=== PATIENT | male | born 1960 | race Hispanic/Latino ===

== ENCOUNTER 2020-06-25 16:25 | Observation (INO) | payer SELFPAY ==
[2020-06-25] MEDS ORDERED: HYDROCODONE/APAP 7.5/325 MG TAB ONE (17:50)
[2020-06-25] MEDS ORDERED: TETANUS & DIPHTHERIA TOX,ADULT 0.5 ML VIAL ONE (17:50)
--- NOTE | 2020-06-25 18:04 | RAD REPORT ---
EXAM DESCRIPTION: RAD - Hand Left 3 View - 06/25/2020 5:55 pm CLINICAL HISTORY: crush injury to left index finger FINDINGS: Soft tissue amputation with tuft fracture involves distal second digit. Hardware plate is present in the first metacarpal. No radiopaque foreign body evident.
[2020-06-25] MEDS ORDERED: LIDOCAINE 1% 20 ML MDV ONE (18:28)
[2020-06-25] MEDS ORDERED: BUPIVACAINE 0.5% PF 10 ML VIAL ONE (18:28)
--- NOTE | 2020-06-25 18:43 | ER ---
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 Coronavirus screen: Client denies travel out of the [place] in the last 14 days. At this time, the client does not indicate any symptoms associated with coronavirus-19. Ebola Screen: Patient negative for fever greater than or equal to 101.5 degrees Fahrenheit, and additional compatible Ebola Virus Disease symptoms Patient denies exposure to infectious person. Patient denies travel to an Ebola-affected area in the 21 days before illness onset. No symptoms or risks identified at this time. Initial Sepsis Screen: Does the patient meet any 2 criteria? No. Patient's initial sepsis screen is negative. Does the patient have a suspected source of infection? No. Patient's initial sepsis screen is negative. Risk Assessment: Do you want to hurt yourself or someone else? Patient reports no desire to harm self or others. Onset of symptoms was June 25, 2020. 16:46 Method Of Arrival: Ambulatory ca1 16:46 Acuity: NICOLE 4 ca1 Triage Assessment: 16:51 General: Appears in no apparent distress. uncomfortable, Behavior is calm, cooperative, bp appropriate for age. Pain: Complains of pain in palmar aspect of distal phalanx of left index finger. EENT: No deficits noted. Neuro: No deficits noted. Cardiovascular: No deficits noted. Respiratory: No deficits noted. GI: No signs and/or symptoms were reported involving the gastrointestinal system. : No signs and/or symptoms were reported regarding the genitourinary system. Derm: No deficits noted. Musculoskeletal: Circulation, motion, and sensation intact. Injury Description: Avulsion sustained to palmar aspect of distal phalanx of left index finger. Historical: - Allergies: 16:49 No Known Allergies; ca1 - PMHx: 16:49 Hypertension; ca1 - Immunization history:: Last tetanus immunization: unknown. - Social history:: Smoking status: Patient reports the use of cigarette tobacco products, smokes one-half pack cigarettes per day. Screenin:53 Abuse screen: Denies threats or abuse. Denies injuries from another. Nutritional bp screening: No deficits noted. Tuberculosis screening: No symptoms or risk factors identified. Fall Risk None identified. Assessment: 16:53 General: SEE TRIAGE NOTE. bp Vital Signs: 16:46 BP 184 / 87; Pulse 69; Resp 16 S; Temp 98.4; Pulse Ox 98% on R/A; Weight 77.11 kg (M); ca1 Height 5 ft. 5 in. (165.10 cm) (R); Pain 7/10; 20:20 BP 144 / 76; Pulse 59; Resp 18; Temp 98.3; Pulse Ox 97% on R/A; mg2 16:46 Body Mass Index 28.29 (77.11 kg, 165.10 cm) ca1 ED Course: 16:26 Patient arrived in ED. am2 16:48 Triage completed. ca1 16:49 Arm band placed on right wrist. ca1 16:51 Norbert Blake, ISMA is Primary Nurse. bp 16:53 Patient has correct armband on for positive identification. Bed in low position. Call bp light in reach. Side rails up X2. 17:19 Jaya Garvin PA is PHCP. cp 17:19 Jaya Dunn MD is Attending Physician. cp 17:55 Hand Left 3 View In Process Unspecified. EDMS 18:39 XRAY Chest (1 view) In Process Unspecified. EDMS 18:41 Sebastian Klein MD is Hospitalizing Provider. cp 20:20 No provider procedures requiring assistance completed. Patient admitted, IV remains in mg2 place. 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 Exp: bp 09/11/2021. Lot #: [id number]. } Route: IM; Site: left deltoid; 18:13 Follow up: Response: No adverse reaction bp 18:12 Drug: Marcaine (bupivacaine) (0.5 %) 5 ml Volume: 10 ml; Route: Infiltration; bp 18:13 Drug: Lidocaine (1 %) 10 mg Volume: 20 ml; Route: Infiltration; bp 20:13 Drug: Ancef (cefazolin) 1 grams Route: IVPB; Site: right antecubital; ea Outcome: 18:43 Decision to Hospitalize by Provider. cp 20:20 Admitted to Med/surg accompanied by tech, via wheelchair, room 209, with chart, Report mg2 called to ISMA Root 20:20 Condition: stable 20:20 Instructed on the need for admit, Demonstrated understanding of instructions. 20:24 Patient left the ED. mg2 Signatures: Dispatcher [employer] EDMS Jaya Garvin PA PA cp Moreno, Amanda am2 Lianna Vera RN RN Norbert Monroy RN RN bp Dmitri Priest, ISMA RN mg2 Roselia Serrano RN RN ca1
--- NOTE | 2020-06-25 18:43 | EDPHYS ---
Physician Documentation [facility] Name: Bruce Doty Age: 60 yrs Sex: Male : 1960 Arrival Date: 06/25/2020 Time: 16:26 Bed 4 Private MD: Jaya Mora HPI: 06/25 17:30 This 60 yrs old Male presents to ER via Ambulatory with complaints of Finger cp Injury. 17:30 The patient or guardian reports deformity, injury, pain. The complaints affect the cp distal phalanx left index finger. 17:30 Context: resulted from a crush injury, "trailer". Onset: The symptoms/episode cp began/occurred just prior to arrival. Historical: - Allergies: 16:49 No Known Allergies; ca1 - PMHx: 16:49 Hypertension; ca1 - Immunization history:: Last tetanus immunization: unknown. - Social history:: Smoking status: Patient reports the use of cigarette tobacco products, smokes one-half pack cigarettes per day. ROS: 17:35 MS/extremity: Positive for injury or acute deformity, pain, of the distal phalanx left cp index finger. 17:35 Constitutional: Negative for body aches, chills, fever, poor PO intake. cp 17:35 Cardiovascular: Negative for chest pain, edema, palpitations. 17:35 Respiratory: Negative for cough, shortness of breath, wheezing. 17:35 All other systems are negative. Exam: 17:40 Constitutional: The patient appears in no acute distress, alert, awake, non-toxic, well cp developed, well nourished. 17:40 Head/Face: Normocephalic, atraumatic. cp 17:40 Eyes: Periorbital structures: appear normal, Conjunctiva: normal, no exudate, no injection, Lids and lashes: appear normal, bilaterally. 17:40 ENT: External ear(s): are unremarkable, Nose: is normal, Posterior pharynx: Airway: no evidence of obstruction, patent. 17:40 Chest/axilla: Inspection: normal, Palpation: is normal, no crepitus, no tenderness. 17:40 Cardiovascular: Rate: normal, Rhythm: regular. 17:40 Respiratory: the patient does not display signs of respiratory distress, Respirations: normal, no use of accessory muscles, no retractions, labored breathing, is not present, Breath sounds: are clear throughout, no decreased breath sounds, no stridor, no wheezing. 17:40 Abdomen/GI: Inspection: abdomen appears normal, Palpation: abdomen is soft and non-tender, in all quadrants. 17:40 Back: pain, is absent, ROM is normal. 17:40 Musculoskeletal/extremity: Extremities: grossly normal except: noted in the distal phalanx left index finger: deformity, pain, amputation with exposure of bone, mild bleeding, Perfusion: the extremity is intact, Sensation intact. 18:20 ECG was reviewed by the Attending Physician. cp Vital Signs: 16:46 BP 184 / 87; Pulse 69; Resp 16 S; Temp 98.4; Pulse Ox 98% on R/A; Weight 77.11 kg (M); ca1 Height 5 ft. 5 in. (165.10 cm) (R); Pain 7/10; 20:20 BP 144 / 76; Pulse 59; Resp 18; Temp 98.3; Pulse Ox 97% on R/A; mg2 16:46 Body Mass Index 28.29 (77.11 kg, 165.10 cm) ca1 MDM: 17:21 Patient medically screened. cp 17:30 Differential diagnosis: dislocation, open fracture, closed fracture, contusion, cp amputation. 18:15 Data reviewed: vital signs, nurses notes, radiologic studies, plain films. cp 18:15 Physician consultation: Rommel Mistry MD was called at 18:15, was contacted at 18:15, cp regarding consult, patient's condition, wants patient admitted to hospitalist, npo after midnight and will repair digit tomorrow morning. 18:30 Physician consultation: Cyrus PENA was called at 18:20, was contacted at 18:20, cp regarding admission, to the medical/surgical unit. patient's condition. 06/25 18:05 Order name: Basic Metabolic Panel; Complete Time: 19:17 cp 06/25 19: Interpretation: Normal except: GLUC 166. cp 06/25 18:05 Order name: CBC with Diff; Complete Time: 19: cp 06/25 19:17 Interpretation: Normal except: WBC 11.70; MALKA% 79.1; LYM% 12.3; NEUT A 9.2. cp 06/25 18:05 Order name: LFT's; Complete Time: 19:17 cp 06/25 19:19 Interpretation: Normal except: TP 8.3; GLOB 4.2; A/G 1.0. cp 06/25 18:05 Order name: Magnesium; Complete Time: 19:17 cp 06/25 18:05 Order name: PT-INR; Complete Time: 19:17 cp 06/25 17:29 Order name: Hand Left 3 View; Complete Time: 19:17 EDMS 06/25 18:05 Order name: XRAY Chest (1 view); Complete Time: 19:17 cp 06/25 19:33 Order name: SARS-COV-2 RT PCR; Complete Time: 19:46 EDMS 06/25 19:46 Interpretation: Results reviewed. cp 06/25 18:05 Order name: EKG; Complete Time: 18:17 cp 06/25 18:05 Order name: Cardiac monitoring; Complete Time: 18:13 cp 06/25 18:05 Order name: EKG - Nurse/Tech; Complete Time: 18:13 cp 06/25 18:05 Order name: IV Saline Lock; Complete Time: 19:09 cp 06/25 18:05 Order name: Labs collected and sent; Complete Time: 19:09 cp 06/25 18:05 Order name: O2 Per Protocol; Complete Time: 18:13 cp 06/25 18:05 Order name: O2 Sat Monitoring; Complete Time: 18:13 cp EC:20 Rate is 69 beats/min. Rhythm is regular. AR interval is normal. QRS interval is normal. cp QT interval is normal. Interpreted by me. Reviewed by me. 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 Exp: bp 09/11/2021. Lot #: [id number]. } Route: IM; Site: left deltoid; 18:13 Follow up: Response: No adverse reaction bp 18:12 Drug: Marcaine (bupivacaine) (0.5 %) 5 ml Volume: 10 ml; Route: Infiltration; bp 18:13 Drug: Lidocaine (1 %) 10 mg Volume: 20 ml; Route: Infiltration; bp 20:13 Drug: Ancef (cefazolin) 1 grams Route: IVPB; Site: right antecubital; ea Disposition: 19:00 Chart complete. cp 06/26 01:20 Co-signature as Attending Physician, Jaya Dunn MD I agree with the assessment and anju plan of care. Disposition: 06/25/20 18:43 Hospitalization ordered by Sebastian Klein for Observation. Preliminary diagnosis is Complete traumatic transphalangeal amputation of left index finger - distal phalanx. - Bed requested for Telemetry/MedSurg (observation). - Status is Observation. mg2 - Condition is Stable. - Problem is new. - Symptoms have improved. Signatures: Dispatcher [employer] EDVA Jaya Dunn MD MD cha Page, Corey, PA PA cp Lianna Vera, RN RN Norbert Monroy RN Dmitri Medina, RN RN mg2 Roselia Serrano RN RN ca1 Courtney Kemp RN RN rd1 Corrections: (The following items were deleted from the chart) 06/25 17:29 17:23 Finger-Thumb Left+.RAD.RAD.BRZ ordered. EDVA EDMS 18:48 18:19 CORONAVIRUS+MR.LAB.BRZ ordered. EDVA EDMS 19:21 18:43 Hospitalization Ordered by Sebastian Klein MD for Observation. Preliminary cp diagnosis is Nondisplaced fracture of distal phalanx of left index finger - open. Bed requested for Telemetry/MedSurg (observation). Status is Observation. Condition is Stable. Problem is new. Symptoms have improved. cp 19:56 19:21 06/25/2020 18:43 Hospitalization Ordered by Sebastian Klein MD for Observation. rd1 Preliminary diagnosis is Complete traumatic transphalangeal amputation of left index finger - distal phalanx. Bed requested for Telemetry/MedSurg (observation). Status is Observation. Condition is Stable. Problem is new. Symptoms have improved. cp 20:24 19:56 06/25/2020 18:43 Hospitalization Ordered by Sebastian Klein MD for Observation. mg2 Preliminary diagnosis is Complete traumatic transphalangeal amputation of left index finger - distal phalanx. Bed requested for Telemetry/MedSurg (observation). Status is Observation. Condition is Stable. Problem is new. Symptoms have improved. rd1
--- NOTE | 2020-06-25 18:51 | RAD REPORT ---
EXAM DESCRIPTION: RAD - Chest Single View - 06/25/2020 6:39 pm CLINICAL HISTORY: pre-op Chest pain. COMPARISON: <Comparisons> FINDINGS: Portable technique limits examination quality. Small calcified granuloma suspected left upper lobe. The lungs are otherwise clear. The heart is norm al in size. No displaced fractures. IMPRESSION: No acute intrathoracic process suspected.
[2020-06-25 18:53] LABS: Absolute Lymphocytes (CBC) 1.4 K/uL (0.7-4.9); Basophils % 0.4 % (0-1.3); Hematocrit 42.6 % (39.6-49.0); Lymphocytes % 12.3 % (15.3-44.8); MPV 9.4 fL (7.6-11.3); RBC Red Blood Cell Count 4.92 M/uL (4.33-5.43)
[2020-06-25 18:56] LABS: Protime INR 1.07
[2020-06-25 19:08] LABS: ALT/SGPT 37 U/L (12-78); AST/SGOT 20 U/L (15-37); Albumin 4.1 g/dL (3.4-5.0); Alkaline Phosphatase 87 U/L (45-117); BUN Blood Urea Nitrogen 17 mg/dL (7-18); Bicarbonate 26 mmol/L (21-32); Bilirubin Direct 0.1 mg/dL (0-0.2); Bilirubin Total 0.5 mg/dL (0.2-1.0); Glucose Level 166 mg/dL (74-106); Magnesium 2.1 mg/dL (1.8-2.4); Potassium 3.8 mmol/L (3.5-5.1); Protein, Total 8.3 g/dL (6.4-8.2); Sodium Level 138 mmol/L (136-145)
[2020-06-25] MEDS ORDERED: CEFAZOLIN/SWI 1gm 1 GM/10 ML SYR ONE (19:37)
--- NOTE | 2020-06-25 20:20 | P.HP ---
Certification for Inpatient Patient admitted to: Observation With expected LOS: <2 Midnights Patient will require the following post-hospital care: None Practitioner: I am a practitioner with admitting privileges, knowledge of patient current condition, hospital course, and medical plan of care. Services: Services provided to patient in accordance with Admission requirements found in Title 42 Section 412.3 of the Code of Federal Regulations <Cyrus Arreguin - Last Filed: 06/25/20 20:17> Patient History Date of Service: 06/25/20 Primary Care Provider: none Reason for admission: Left 2nd digit soft tissue amputation/tuft fracture History of Present Illness: 60-year-old male with no significant past medical history presents emergency department for finger injury. Patient reports he is at work working on attaching a trailer to the back of a truck when the trailer hitch crushed left 2nd digit. Soft tissue amputation of the distal left 2nd digit with tuft fracture noted. ED provider consulted with plastic surgery who wishes to have patient admitted under observation for further evaluation and management. Labs in the emergency department only significant for mildly elevated blood sugar 166. Patient denies taking any medications at home but reports he has been told he has high blood pressure in the past. - Past Medical/Surgical History -: Hypertension -: Left hand surgery Psychosocial/ Personal History: Patient is employed, lives with family - Family History Mother -: Diabetes - Social History Smoking Status: Current every day smoker Counseled patient to stop smoking for: less than 10 minutes Smoking therapy provided: Yes Alcohol use: Yes CD- Drugs: No Caffeine use: Yes Place of Residence: Home <Cyrus Arreguin - Last Filed: 06/25/20 20:17> Date of Service: 06/27/20 <Sebastian Klein - Last Filed: 06/27/20 19:37> Review of Systems 10-point ROS is otherwise unremarkable Musculoskeletal: As per HPI Integumentary: As per HPI <Cyrus Arreguin - Last Filed: 06/25/20 20:17> Physical Examination - Physical Exam General: Alert, In no apparent distress HEENT: Atraumatic, PERRLA, Mucous membr. moist/pink, EOMI, Sclerae nonicteric Neck: Supple, 2+ carotid pulse no bruit, No LAD, Without JVD or thyroid abnormality Respiratory: Clear to auscultation bilaterally, Normal air movement Cardiovascular: Regular rate/rhythm, Normal S1 S2 Gastrointestinal: Normal bowel sounds, No tenderness Musculoskeletal: Other (Soft tissue amputation left distal 2nd digit ) Integumentary: No rashes Neurological: Normal gait, Normal speech, Normal strength at 5/5 x4 extr, Normal tone, Normal affect Lymphatics: No axilla or inguinal lymphadenopathy - Studies Laboratory Data (last 24 hrs) 06/25/20 18:35: PT 12.3, INR 1.07 06/25/20 18:35: WBC 11.70 H, Hgb 14.6, Hct 42.6, Plt Count 193 06/25/20 18:35: Sodium 138, Potassium 3.8, BUN 17, Creatinine 0.85, Glucose 166 H, Magnesium 2.1, Total Bilirubin 0.5, AST 20, ALT 37, Alkaline Phosphatase 87 <Cyrus Arreguin - Last Filed: 06/25/20 20:17> Assessment and Plan - Plan Assessment Soft tissue indication without fracture to the distal left 2nd digit Hyperglycemia Hypertension Plan Soft tissue indication without fracture to the distal left 2nd digit: Plastic surgery consulted, NPO after midnight continue with IV and staff, pain medications p.r.n.. DVT prophylaxis with SCDs. Appreciate further input from plastics. Hyperglycemia: Blood sugar 166, no known history diabetes. A1c with morning labs. Hypertension: Patient reports not taking any blood pressure medication, will monitor blood pressure throughout this hospitalization to determine need for intervention. Discharge Plan: Home Plan to discharge in: 24 Hours - Advance Directives Does patient have a Living Will: No Does patient have a Durable POA for Healthcare: No - Code Status/Comfort Care Code Status Assessed: Yes (Full code) Critical Care: No Time Spent Managing Pts Care (In Minutes): 55 <Cyrus Arreguin - Last Filed: 06/25/20 20:17> - Plan Plan of care reviewed as noted above. Fractured distal left 2nd digit Surgery consulted <Sebastian Klein - Last Filed: 06/27/20 19:37>
[2020-06-25] MEDS ORDERED: MORPHINE 2 MG/ML SYR IV PRN (20:45)
[2020-06-25] MEDS ORDERED: ONDANSETRON 4 MG/2 ML VIAL IV PRN (20:45)
[2020-06-25] MEDS ORDERED: HYDROCODONE/APAP 7.5/325 MG TAB PO PRN (20:45)
[2020-06-25] MEDS: NA CHLORIDE 0.9% 1,000 ML IV SCH (23:11)
[2020-06-26 00:12] VITALS: BMI 28.3
[2020-06-26] MEDS ORDERED: CEFAZOLIN/NS 1gm 1 GM/50 ML BAG IVPB SCH (01:00)
[2020-06-26] MEDS ORDERED: CEFAZOLIN/SWI 1gm 0 GM/0 ML SYR ONE (01:14)
[2020-06-26] MEDS ORDERED: CEFAZOLIN/SWI 1gm 1 GM/10 ML SYR ONE (01:22)
[2020-06-26] MEDS: CEFAZOLIN/SWI 1gm 1 GM/10 ML SYR IV SCH ×2 (01:30→09:00)
[2020-06-26] MEDS: NA CHLORIDE 0.9% 1,000 ML IV SCH (06:45)
[2020-06-26 06:56] LABS: Absolute Lymphocytes (CBC) 1.9 K/uL (0.7-4.9); Basophils % 0.5 % (0-1.3); Hematocrit 42.3 % (39.6-49.0); Lymphocytes % 25.5 % (15.3-44.8); MPV 9.1 fL (7.6-11.3); RBC Red Blood Cell Count 4.94 M/uL (4.33-5.43)
[2020-06-26 07:57] LABS: ALT/SGPT 32 U/L (12-78); AST/SGOT 17 U/L (15-37); Albumin 3.5 g/dL (3.4-5.0); Alkaline Phosphatase 78 U/L (45-117); BUN Blood Urea Nitrogen 14 mg/dL (7-18); Bicarbonate 24 mmol/L (21-32); Bilirubin Total 0.7 mg/dL (0.2-1.0); Glucose Level 130 mg/dL (74-106); Potassium 3.6 mmol/L (3.5-5.1); Protein, Total 7.3 g/dL (6.4-8.2); Sodium Level 138 mmol/L (136-145)
[2020-06-26] MEDS ORDERED: Ringers Lactate 1,000 ML IV ONE (08:22)
[2020-06-26] MEDS ORDERED: KCL 20 MEQ/100 mL IVPB 20 MEQ/100 ML BAG IV SCH (09:00)
[2020-06-26] MEDS ORDERED: propofoL 200 MG/20 ML VIAL IV ONE (09:12)
[2020-06-26] MEDS ORDERED: LIDOCAINE 2% MPF 5 ML VIAL ONE (09:13)
[2020-06-26] MEDS ORDERED: dexAMETHasone 10 MG/ML VIAL ONE (09:13)
[2020-06-26] MEDS ORDERED: ONDANSETRON 4 MG/2 ML VIAL ONE (09:13)
[2020-06-26] MEDS ORDERED: FENTANYL CITR 100 MCG/2 ML ONE (09:13)
[2020-06-26] MEDS ORDERED: KETOROLAC 30 MG/ML INJ ONE (09:13)
[2020-06-26] MEDS ORDERED: GLYCOPYRROLATE 0.2 MG/ML SYR ONE (10:03)
[2020-06-26] MEDS ORDERED: Phenylephrine HCl 10 MG/ML 1 ML VIAL ONE (10:08)
[2020-06-26] MEDS: FENTANYL CITR 100 MCG/2 ML ONE ×2 (10:19→10:24)
[2020-06-26 10:22] VITALS: O2SAT 98
[2020-06-26] MEDS ORDERED: POTASSIUM CL SA 10 MEQ TAB PO ONE (12:00)
[2020-06-26 12:01] VITALS: BP 150/70; TEMP 97.4
--- NOTE | 2020-06-26 19:54 | OP ---
Surgeon: Rommel Mistry MD Preoperative Diagnosis: Degloving injury of the left index fingertip. Postoperative Diagnosis: Degloving injury of the left index fingertip. Procedure Performed: Debridement of skin and subcutaneous tissue and bone, flap closure. Anesthesia: General. Procedure In Detail: After satisfactory anesthesia, the left arm was prepped with Betadine scrub and paint. Dry sterile drapes were applied in the usual manner. The arm was elevated, exsanguinated with an Esmarch, tourniquet inflated to 250 mmHg. Hand was placed on Roto Lock table. The patient had a transverse incision made over dorsum finger at the dermal matrix level. Flap was elevated off the extensor tendon. Then, the tendon was divided at the IPJ. Dissection was proceeded down to the IP joint. The rongeur, bone cutter, file were used to debride around the edges of the distal portion of the middle phalanx and then the wound was jet lavaged and irrigated with about 1 L of Betadine solution. Tourniquet was released. Electrocautery was used for hemostasis. Wound was closed after flaps edges were debrided as needed with a crushed tissue, closed with 4-0 Prolene simple sutures. Dressed with Xeroform, 2-inch Marly. The patient tolerated the procedure well and returned to Recovery. MILLER/MACEY Voice ID: [id number] Report ID: [id number] MTDD
--- NOTE | 2020-06-26 21:25 | P.DS ---
Admission Date: 06/25/20 Discharge Date: 06/26/20 Primary Care Provider: none Disposition: ROUTINE DISCHARGE Discharge Condition: GOOD Reason for Admission: Left 2nd digit soft tissue amputation/tuft fracture Consultations: Plastic's - Dr. Mistry Procedures: CXR (06/25): No acute intrathoracic process suspected. Small calcified granuloma suspected left upper lobe. Hand X-ray (06/25): Soft tissue amputation with tuft fracture involves distal second digit. Hardware plate is present in the first metacarpal. No radiopaque foreign body evident. Debridement of skin and subcutaneous tissue and bone, flap closure by Dr. Mistry Plan Soft tissue amputation without fracture to the distal left 2nd digit Hyperglycemia Hypertension Brief History of Present Illness: 60-year-old male with no significant past medical history presents emergency department for finger injury. Patient reports he is at work working on attaching a trailer to the back of a truck when the trailer hitch crushed left 2nd digit. Soft tissue amputation of the distal left 2nd digit with tuft fracture noted. ED provider consulted with plastic surgery who wishes to have patient admitted under observation for further evaluation and management. Labs in the emergency department only significant for mildly elevated blood sugar 16 6. Patient denies taking any medications at home but reports he has been told he has high blood pressure in the past. Hospital Course: Patient was taken to the OR by Dr. Mistry and underwent debridement and close of his left index finger. He was discharged with Bactrim and zofran. He is to follow up as previously discussed with PCP and Dr. Mistry. Vital Signs/Physical Exam: Physical Exam General: Alert, In no apparent distress HEENT: Atraumatic, PERRLA, Mucous membr. moist/pink, EOMI, Sclerae nonicteric Neck: Supple, 2+ carotid pulse no bruit, No LAD, Without JVD or thyroid abnormality Respiratory: Clear to auscultation bilaterally, Normal air movement Cardiovascular: Regular rate/rhythm, Normal S1 S2 Gastrointestinal: Normal bowel sounds, No tenderness Musculoskeletal: Soft tissue amputation left distal 2nd digit Integumentary: No rashes Lymphatics: No axilla or inguinal lymphadenopathy Temp Pulse Resp BP Pulse Ox 97.4 F 65 16 150/70 H 96 06/26/20 12:00 06/26/20 12:00 06/26/20 12:00 06/26/20 12:00 06/26/20 12:00 Laboratory Data at Discharge: WBC 7.40 K/uL (4.3-10.9) D 06/26/20 06:22 Hgb 14.9 g/dL (13.6-17.9) 06/26/20 06:22 Hct 42.3 % (39.6-49.0) 06/26/20 06:22 Plt Count 177 K/uL (152-406) 06/26/20 06:22 PT 12.3 SECONDS (9.5-12.5) 06/25/20 18:35 INR 1.07 06/25/20 18:35 Sodium 138 mmol/L (136-145) 06/26/20 06:22 Potassium 3.6 mmol/L (3.5-5.1) 06/26/20 06:22 BUN 14 mg/dL (7-18) 06/26/20 06:22 Creatinine 0.87 mg/dL (0.55-1.3) 06/26/20 06:22 Glucose 130 mg/dL (74-106) H 06/26/20 06:22 Magnesium 2.1 mg/dL (1.8-2.4) 06/25/20 18:35 Total Bilirubin 0.7 mg/dL (0.2-1.0) 06/26/20 06:22 AST 17 U/L (15-37) 06/26/20 06:22 ALT 32 U/L (12-78) 06/26/20 06:22 Alkaline Phosphatase 78 U/L (45-117) 06/26/20 06:22 Home Medications: Codeine/APAP [Tylenol W/Codeine #3 tab] 1 tab PO Q4HP PRN #30 tab 06/26/20 Sulfamethoxazole/Trimethoprim [Bactrim Ds Tablet] 1 each PO Q12H #20 tablet 06/07 04/28 New Medications: Codeine/APAP [Tylenol W/Codeine #3 tab] 1 tab PO Q4HP PRN #30 tab PRN Reason: Pain Scale 5-7 (Moderate) Sulfamethoxazole/Trimethoprim [Bactrim Ds Tablet] 1 each PO Q12H #20 tablet Diet: Regular Activity: Ad janice Followup: Rommel Mistry MD [ACTIVE - CAN ADMIT] - 06/27/20 9:00 am (Follow up in [facility] office located at [address] [place] [address] [address]. [address], [address], [facility]) OOT,OOT [Primary Care Provider] - Time spent managing pt's care (in minutes): 35
[2020-06-26] MEDS ORDERED: NICOTINE 14 MG/PAT TD SCH (22:00)
== END 2020-06-26 12:39 | disposition home or self-care (01) ==
LOC: ER 16:25 → ERHOLD 19:23 → 2ND 20:20
PROVIDERS: ADMIT Hospitalist; ATTEND Hospitalist
PROC: 0PBV0ZZ Excision of Left Finger Phalanx, Open Approach (ICD-10-PCS; principal; 2020-06-26 09:00)
DX: S61.201A Unspecified open wound of left index finger without damage to nail, initial encounter (principal); W23.0XXA Caught, crushed, jammed, or pinched between moving objects, initial encounter; I10 Essential (primary) hypertension; R73.9 Hyperglycemia, unspecified; F17.210 Nicotine dependence, cigarettes, uncomplicated; Z20.822 Contact with and (suspected) exposure to COVID-19
CPT/HCPCS: 93005; 85025 ×2; 80048; 36415; 83735; 85610; 80076; 88304; 83036; 80053; 71045; 73130; 90714; 11044; U0003; J2704; J2370; J3010 ×2; J1100; J0690 ×2; J7120; J7030; J2405; G0378 ×3; 88311; 90471; 96374; 99285